=== PATIENT | male | born 1960 ===

== ENCOUNTER 2017-12-18 08:05 | Emergency (ER) | payer OTHER ==
[2017-12-18 08:05] VITALS: BMI 29.0
[2017-12-18 08:32] VITALS: TEMP 98.3
--- NOTE | 2017-12-18 08:35 | C.PDOC ---
History Of Present Illness MULT COMPLAINTS 57-YEAR-OLD MALE, PRESENTS TO THE EMERGENCY DEPARTMENT WITH COMPLAINTS OF PERSISTENT EPIGASTRIC DISCOMFORT X SEVERAL MONTHS. PAIN IS WORSE WHEN EATING SOLIDS BUT NOT PRESENT WITH LIQUIDS. DENIES REGURG, VOMITING. +ASSOC INTERMIT BLOATING. LAST BM YEST. PSH KAMRAN, HERNIA REPAIR. NO FEVER, CP, SOB. SELF DC XANAX X 2-3 DAYS, HAS BEEN ON XANAX "FOR A WHILE". 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, PSYCHOSIS REMAINDER NEG Time Seen by Provider: 12/18/17 08:16 Chief Complaint (Nursing): Chest Pain History Per: Patient History/Exam Limitations: no limitations Past Medical History Reviewed: Historical Data, Nursing Documentation, Vital Signs Vital Signs: Last Vital Signs Temp 98.3 F 12/18/17 08:13 Pulse 81 12/18/17 08:13 Resp 14 12/18/17 08:13 BP 203/85 H 12/18/17 08:13 Pulse Ox 98 12/18/17 09:24 - Medical History PMH: Anxiety, Gall Bladder Disease, HTN, Hypothyroidism, Kidney Stones, Chronic Kidney Disease Surgical History: Cholecystectomy, Hernia Repair - [facility] Procedures EXCISION OF LIVER, PERCUTANEOUS ENDOSCOPIC APPROACH, DIAGN (07/12/15) RESECTION OF GALLBLADDER, PERCUTANEOUS ENDOSCOPIC APPROACH (07/12/15) ROBOTIC ASSISTED PROCEDURE OF TRUNK, PERC ENDO APPROACH (07/12/15) Family History: States: No Known Family Hx - Social History Hx Alcohol Use: No Hx Substance Use: No - Immunization History Hx Tetanus Toxoid Vaccination: No Hx Influenza Vaccination: No Hx Pneumococcal Vaccination: No Review Of Systems Except As Marked, All Systems Reviewed And Found Negative. Constitutional: Negative for: Fever, Chills Respiratory: Negative for: Cough, Shortness of Breath Gastrointestinal: Positive for: Abdominal Pain. Negative for: Vomiting, Diarrhea, Constipation Musculoskeletal: Negative for: Back Pain Neurological: Negative for: Weakness, Numbness Psych: Positive for: Anxiety. Negative for: Depression, Suicidal ideation Physical Exam - Physical Exam Appears: Non-toxic, No Acute Distress, Other ( CALM COOPERATIVE NO ACTIVE SI/SA , PSYCHOSIS) Skin: Normal Color, Warm, Dry, No Rash Head: Normacephalic Eye(s): bilateral: PERRL Nose: Normal Oral Mucosa: Moist Lips: Normal Appearing Neck: Normal ROM Chest: Symmetrical Cardiovascular: Rhythm Regular, No Murmur Respiratory: Normal Breath Sounds, No Accessory Muscle Use, No Rales, No Rhonchi , No Wheezing Gastrointestinal/Abdominal: Soft, No Tenderness, No Guarding, No Hernia Extremity: Normal ROM, No Deformity, No Swelling Neurological/Psych: Oriented x3, Normal Speech ED Course And Treatment - Laboratory Results Result Diagrams: 12/18/17 08:45 12/18/17 08:45 ECG: Interpreted By Me ECG Rhythm: Sinus Rhythm ECG Interpretation: Normal Rate From EC O2 Sat by Pulse Oximetry: 98 (RA) Pulse Ox Interpretation: Normal Progress - Re-Evaluation Re-evaluation Note: 12/18/17 12:05 APPEARS COMFORTABLE NO S/S ACUTE ABD. SX POSSIBLY RELATED TO XANAX WITHDRAWAL. ADVISED FU PMD - Data Reviewed Data Reviewed: Lab, Diagnostic imaging, EKG, Old records Disposition Counseled Patient/Family Regarding: Studies Performed, Diagnosis, Need For Followup, Rx Given - Disposition Referrals: YOUR,PMD [Other] Disposition: HOME/ ROUTINE Disposition Time: 12:09 Condition: IMPROVED Instructions: Acute Abdomen (Belly Pain), Adult (DC) Forms: [employer] (British) - Clinical Impression Clinical Impression: Abdominal pain - Scribe Statement The provider has reviewed the documentation as recorded by the Scribe All medical record entries made by the Scribe were at my direction and personally dictated by me. I have reviewed the chart and agree that the record accurately reflects my personal performance of the history, physical exam, medical decision making, and the department course for this patient. I have also personally directed, reviewed, and agree with the discharge instructions and disposition.
[2017-12-18 08:48] LABS: BASO # 0.1 K/uL (0.0-0.2); EOS # 0.2 K/uL (0.0-0.7); EOS % 2.8 % (0.0-4.0); HEMOGLOBIN 14.7 g/dL (12.0-18.0); LYMPH # 2.7 K/uL (1.0-4.3); LYMPH % 30.7 % (20.0-40.0); MEAN CORPUSCULAR HGB CONC 34.5 g/dL (33.0-37.0); MEAN PLATELET VOLUME 8.9 fL (7.2-11.7); MONO # 0.5 K/uL (0.0-0.8); MONO % 6.2 % (0.0-10.0); NEUT # 5.2 K/uL (1.8-7.0); NEUT % 59.3 % (50.0-75.0); RBC 4.75 Mil/uL (4.40-5.90); RED CELL DISTRIBUTION WIDTH 13.9 % (11.5-14.5); WHITE BLOOD COUNT 8.8 K/uL (4.8-10.8)
[2017-12-18 09:03] LABS: ALB/GLOB RATIO 1.2 (1.0-2.1); ALT/SGPT 34 U/L (21-72); AST/SGOT 27 U/L (17-59); BLOOD UREA NITROGEN 14 mg/dL (9-20); GFR AFRICAN-AMERICAN > 60; GFR NON-AFRICAN AMERICAN > 60; LIPASE 55 U/L (23-300)
[2017-12-18] MEDS ORDERED: Iohexol 240 (50 ml) PO ONE (09:06)
--- NOTE | 2017-12-18 09:09 | RAD ---
PROCEDURE: CHEST RADIOGRAPH, 1 VIEW HISTORY: abd pain COMPARISON: Chest radiograph dated 06/19/2016. FINDINGS: LUNGS: Clear. PLEURA: No pneumothorax or pleural fluid seen. CARDIOVASCULAR: Cardiomediastinal silhouette stably prominent. OSSEOUS STRUCTURES: Unchanged. VISUALIZED UPPER ABDOMEN: Normal. OTHER FINDINGS: None. IMPRESSION: No active disease.
[2017-12-18] MEDS ORDERED: Iohexol 240 (50 ml) ONE (09:11)
[2017-12-18] MEDS ORDERED: MethylPREDNISolone 40 mg Vial IVP STA (09:24)
[2017-12-18] MEDS ORDERED: MethylPREDNISolone 40 mg Vial ONE (09:35)
[2017-12-18 11:00] LABS: URINE BILIRUBIN NEGATIVE (NEGATIVE); URINE BLOOD NEGATIVE (NEGATIVE); URINE CLARITY Clear (Clear); URINE COLOR Colorless (YELLOW); URINE GLUCOSE (UA) NORMAL (Normal); URINE LEUKOCYTE ESTERASE NEG Leu/uL (Negative); URINE PROTEIN 2+ mg/dL (NEGATIVE); URINE UROBILINOGEN NORMAL mg/dL (0.2-1.0)
--- NOTE | 2017-12-18 11:54 | CT ---
PROCEDURE: CT Abdomen and Pelvis without intravenous contrast HISTORY: ABD PAIN HO KAMRAN, HERNIA REPAIR COMPARISON: None. TECHNIQUE: Contiguous images were obtained from the domes of the diaphragms to the upper thighs without the administration of intravenous contrast. Oral contrast was administered. Radiation dose: Total exam DLP = 819.5 mGy-cm. This CT exam was performed using one or more of the following dose reduction techniques: Automated exposure control, adjustment of the mA and/or kV according to patient size, and/or use of iterative reconstruction technique. FINDINGS: LOWER THORAX: Unremarkable. LIVER: Unremarkable. No gross lesion or ductal dilatation. GALLBLADDER AND BILE DUCTS: Prior cholecystectomy. PANCREAS: Unremarkable. No gross lesion or ductal dilatation. SPLEEN: Unremarkable. ADRENALS: Unremarkable. No mass. KIDNEYS AND URETERS: Unremarkable. No hydronephrosis. No solid mass. VASCULATURE: Unremarkable. No aortic aneurysm. BOWEL: Unremarkable. No obstruction. No gross mural thickening. APPENDIX: Unremarkable. Normal appendix. PERITONEUM: Small bilateral fat containing inguinal hernias. No free fluid. No free air. LYMPH NODES: Unremarkable. No enlarged lymph nodes. BLADDER: Unremarkable. REPRODUCTIVE: Unremarkable. BONES: No acute fracture. OTHER FINDINGS: None. IMPRESSION: No acute abdominal pelvic pathology.
[2017-12-18 12:41] VITALS: BP 176/94; PULSE 70; RESP 20; O2SAT 96
== END 2017-12-18 12:36 | disposition home or self-care (01) ==
LOC: C.ER 08:05
DX: R10.9 Unspecified abdominal pain (principal); K82.9 Disease of gallbladder, unspecified; I12.9 Hypertensive chronic kidney disease with stage 1 through stage 4 chronic kidney disease, or unspecified chronic kidney disease; F17.210 Nicotine dependence, cigarettes, uncomplicated; N18.9 Chronic kidney disease, unspecified
CPT/HCPCS: 71045; 74176; 80053; 81001; 82948; 83690; 84484; 85025; 96374; 99284; J2920; Q9966